=== PATIENT | female | born 1995 | race Two or more races ===

== ENCOUNTER 2019-11-24 09:14 | Emergency (ER) | payer OTHER ==
[~2019-11-24] VITALS: Ht 147.3 cm; Wt 51.8 kg
[2019-11-24] MEDS ORDERED: NEXP1IMP SC (09:20)
[2019-11-24 10:27] LABS: AMORPHOUS SEDIMENT SMALL (NEGATIVE); APPEARANCE, URINE CLEAR (CLEAR); BACTERIA, URINE AUTO 1+ (NEGATIVE); BILIRUBIN, URINE AUTO NEGATIVE (NEGATIVE); BLOOD, URINE BLOOD 2+ (NEGATIVE); COLOR, URINE COLORLESS (YELLOW); GLUCOSE, URINE (UA) AUTO NEGATIVE (NEGATIVE); KETONE, URINE AUTO NEGATIVE (NEGATIVE); LEUKOCYTE ESTERASE, URINE AUTO 1+ (NEGATIVE); NITRITE, URINE AUTO NEGATIVE (NEGATIVE); PROTEIN, URINE AUTO NEGATIVE (NEGATIVE); RBC, URINE AUTO 0 /HPF (0-3); SPECIFIC GRAVITY URINE AUTO 1.002 (1.002-1.035); SQUAMOUS EPITHELIAL CELL UR AU 2 /HPF (0-6); UROBILINOGEN, URINE AUTO 0.2 mg/dL (0.0-2.0); WBC, URINE AUTO 5 /HPF (0-3)
[2019-11-24 11:41] LABS: CHLAMYDIA DNA AMPLIFICATION POSITIVE (NEGATIVE); GC DNA AMPLIFICATION NEGATIVE (NEGATIVE)
[2019-11-24] MEDS ORDERED: AZITHROMYCIN 250 MG TAB PO ONE (11:45)
[2019-11-24] MEDS ORDERED: AZITHROMYCIN 250 MG TAB As Ordered ONE (11:46)
[2019-11-24 11:47] VITALS: BP 108/62
[2019-11-24] MEDS ORDERED: METR0.7533 VG (11:48)
== END 2019-11-24 11:57 | disposition home or self-care (01) ==
LOC: M ED 09:14
DX: A56.02 Chlamydial vulvovaginitis (principal); N76.0 Acute vaginitis; N89.8 Other specified noninflammatory disorders of vagina; Z79.3 Long term (current) use of hormonal contraceptives

== ENCOUNTER 2020-01-05 11:12 | Emergency (ER) | payer OTHER ==
[~2020-01-05] VITALS: Ht 147.3 cm; Wt 50.7 kg
[~2020-01-05 11:12] MED LIST: METR0.7533 VG; NEXP1IMP SC
[2020-01-05 12:13] LABS: BASO % 0.5 % (0.0-1.0); EOS # 0.1 10^3/uL (0.0-0.5); EOS % 1.4 % (0.0-3.0); HEMATOCRIT 40.8 % (36.0-47.0); HEMOGLOBIN 13.1 g/dl (12.0-15.5); LYMPH # 1.2 10^3/uL (1.5-5.0); LYMPH % 27.5 % (24.0-44.0); MEAN CORPUSCULAR HEMOGLOBIN 27.2 pg (27.0-33.0); MEAN CORPUSCULAR HGB CONC 32.1 g/dl (32.0-36.5); MEAN CORPUSCULAR VOLUME 84.6 fl (80.0-96.0); MONO # 0.4 10^3/uL (0.0-0.8); MONO % 8.5 % (0.0-5.0); NEUTROPHILS # 2.7 10^3/uL (1.5-8.5); NEUTROPHILS % 62.1 % (36.0-66.0); PLATELET COUNT, AUTOMATED 237 10^3/uL (150-450); RED BLOOD COUNT 4.82 10^6/uL (4.00-5.40); WHITE BLOOD COUNT 4.3 10^3/uL (4.0-10.0)
[2020-01-05 12:28] LABS: HCG, SERUM QUALITATIVE NEGATIVE (NEGATIVE)
[2020-01-05 12:32] LABS: ALT/SGPT 19 U/L (12-78); BILIRUBIN,DIRECT 0.2 MG/DL (0.0-0.2); BILIRUBIN,TOTAL 0.4 MG/DL (0.2-1.0); BLOOD UREA NITROGEN 8 MG/DL (7-18); CALCIUM LEVEL 8.7 MG/DL (8.5-10.1); CARBON DIOXIDE LEVEL 28 MEQ/L (21-32); CHLORIDE LEVEL 108 MEQ/L (98-107); CREATININE FOR GFR 0.75 MG/DL (0.55-1.30); GLOMERULAR FILTRATION RATE > 60.0 (>60); GLUCOSE, FASTING 64 MG/DL (70-100); POTASSIUM SERUM 4.3 MEQ/L (3.5-5.1); SODIUM LEVEL 141 MEQ/L (136-145); TOTAL PROTEIN 7.3 GM/DL (6.4-8.2)
[2020-01-05] MEDS ORDERED: AZITHROMYCIN 250 MG TAB PO ONE (13:15)
[2020-01-05] MEDS ORDERED: LIDOCAINE 1% SDV 5 ML VIAL DILUENT ONE (13:15)
[2020-01-05] MEDS ORDERED: cefTRIAXone SOD 250 MG VIAL (J0696) IM ONE (13:15)
[2020-01-05 13:19] VITALS: BP 113/72
[2020-01-05 14:13] LABS: CHLAMYDIA DNA AMPLIFICATION NEGATIVE (NEGATIVE); GC DNA AMPLIFICATION NEGATIVE (NEGATIVE)
== END 2020-01-05 13:50 | disposition home or self-care (01) ==
LOC: M ED 11:12
DX: N93.9 Abnormal uterine and vaginal bleeding, unspecified (principal); Z20.2 Contact with and (suspected) exposure to infections with a predominantly sexual mode of transmission
CPT/HCPCS: 80048; 80076; 81001; 84703; 85025; 86850; 86900; 86901; 87210; 87491; 87591; 96372; 99283; J0696